=== PATIENT | female | born 1975 | race African-American/Black ===

== ENCOUNTER 2018-10-22 03:12 | Emergency (ER) | payer OTHER ==
[~2018-10-22] VITALS: Ht 167.6 cm; Wt 65.8 kg
[2018-10-22 03:18] VITALS: BP 115/79
--- NOTE | 2018-10-22 03:51 | PHYS DOC ---
Past Medical History Past Medical History: Arthritis, Other Additional Past Medical Histor: Sleeping disorder Past Surgical History: No Surgical History Additional Information: Nonsmoker Alcohol Use: None Drug Use: None Adult General Chief Complaint Chief Complaint: KNEE INJURY HPI HPI 43-year-old female presents with report of right knee pain and swelling after patient had then climbing off a ladder and ended up striking her knee on a ladder rung just prior to arrival. Patient reports socially hearing a "pop"upon getting off the ladder. Patient reports subsequent pain and swelling. Reports known arthritis of knee. Reports taking ibuprofen prior to arrival. Patient was sent for evaluation by her place of employment and was instructed to follow-up with Workmen's Compensation physician in the a.m. Denies . Reports she currently receives depo shots. Review of Systems Review of Systems Constitutional: Denies fever or chills [] Musculoskeletal: Denies back pain; reports right knee pain Integument: Denies rash or skin lesions; reports swelling Neurologic: Denies headache, focal weakness or sensory changes [] Complete systems were reviewed and found to be within normal limits, except as documented in this note. Allergies Allergies Allergies Coded Allergies Type Severity Reaction Last Updated Verified No Known Drug Allergies 10/22/18 No Physical Exam Physical Exam Constitutional: Well developed, well nourished, no acute distress, non-toxic appearance. [] HENT: Normocephalic, atraumatic Eyes: Conjunctiva normal, no discharge. [] Neck: Normal range of motion, no tenderness, supple Cardiovascular: +2 pulses to right DP and PT Lungs & Thorax: No respiratory distress, no chest wall trauma Skin: Warm, dry, no erythema Extremities: Right knee pain and swelling, no deformity, anterior drawer test negative, Pain on ROM Neurologic: Alert and oriented X 3, normal motor function, normal sensory fun ction, no focal deficits noted. [] Psychologic: Affect normal, judgement normal, mood normal. [] Current Patient Data Vital Signs Vital Signs Date Time Temp Pulse Resp B/P (MAP) Pulse Ox O2 Delivery O2 Flow Rate FiO2 10/22/18 03:18 98.0 60 15 115/79 (91) 100 Room Air 98.0 EKG EKG [] Radiology/Procedures Radiology/Procedures Right Knee- 3 view (preliminary interpretation by ED physician); NO acute fracture or dislocation Course & Med Decision Making Course & Med Decision Making Pertinent Imaging studies reviewed. (See chart for details) Patient presents with report of blunt trauma to right knee was subsequently swelling and pain. Joint appears stable. This occurred while patient was at work. Ice pack applied. Patient recently received ibuprofen prior to arrival. X- ray without acute fracture or dislocation. Enoch wrap applied. Crutches provided with education. Patient stable for discharge with outpatient follow-up with PCP/Workmen's Comp./orthopedic surgery. Orthopedic surgery referral provided. Discussed findings and plan with patient, who acknowledges understanding and agreement. Dragon Disclaimer Dragon Disclaimer This electronic medical record was generated, in whole or in part, using a voice recognition dictation system. Splinting Splinting : Location: Right knee Pre-Made Type: ENOCH bandage Pre-Proc Neuro Vasc Exam: normal Post-Proc Neuro Vasc Exam: normal, unchanged from pre-exam Departure Departure Impression: Primary Impression: Knee pain Disposition: 01 HOME, SELF-CARE Condition: STABLE Referrals: NO PCP (PCP) YEIMY BROWN II, MD Patient Instructions: Contusion, [id number], Crutch Use, [id number], Knee Pain, [id number] Additional Instructions: Use over the counter Tylenol and Ibuprofen/Aleve as needed for pain. ICE area 20 min on then off for next 20 mins as needed over the next few days. Problem Qualifiers Primary Impression: Knee pain Chronicity: acute Laterality: right Qualified Codes: M25.561 - Pain in right knee KRISSY HERNANDEZ DO October 22, 2018 03:51
--- NOTE | 2018-10-22 08:16 | RAD ---
Right knee, 3 views, 10/22/2018: HISTORY: Knee pain and swelling No fracture or dislocation is identified. There is only minimal posterior patellar spurring. No large joint effusion is seen. IMPRESSION: No acute bony abnormality is detected. Electronically signed by: Gary Combs MD (10/22/2018 8:13 AM) [facility]
== END 2018-10-22 04:25 | disposition home or self-care (01) ==
LOC: ER 03:12
DX: M25.561 Pain in right knee (principal); G89.11 Acute pain due to trauma; R22.41 Localized swelling, mass and lump, right lower limb; M19.90 Unspecified osteoarthritis, unspecified site; W22.09XA Striking against other stationary object, initial encounter; Y93.39 Activity, other involving climbing, rappelling and jumping off; Y92.89 Other specified places as the place of occurrence of the external cause; Y99.8 Other external cause status
CPT/HCPCS: 73562; 99284